=== PATIENT | male | born 1950 | race Caucasian/White ===

== ENCOUNTER 2016-07-04 08:24 | Inpatient (IN) | payer BC, OTHER ==
[~2016-07-04] VITALS: Ht 188 cm; Wt 99.3 kg
[~2016-07-04 08:24] MED LIST: ACETAMINOPHN-T1 EACH PO; AMARYL1 MG PO; AMLODIPINE BESYL5 MG PO; B-COMPLEX-VITA1 EACH PO; CELEXA20 MG PO; COREG12.5 M1 PO; DIGOXIN250 MCG PO; DOCUSATE SODIU100 MG PO; GLUCOPHAGE1000 MG PO; IRON325 M1 PO; POTASSIUM GLUCO2 MEQ PO; POTASSIUM OTC PO; PRAVACHOL40 MG PO; SPIRIVA1 INHALATI IH; UROXATRAL10 MG PO; VITAMIN D2000 UNIT PO; ZESTRIL40 MG PO; ZYLOPRIM300 MG PO
[2016-07-04 10:43] VITALS: BP 147/69
[2016-07-04 11:05] LABS: POINT-OF-CARE METER ID UU14174212
[2016-07-04 17:40] VITALS: BP 146/70
[2016-07-04 18:57] LABS: HEMATOCRIT 37.7 % (38.0-50.0); MCV 88.9 FL (86-99)
[2016-07-04 20:38] VITALS: BP 121/65
[2016-07-04 23:59] LABS: POINT-OF-CARE METER ID UU13113712
[2016-07-05 00:01] VITALS: BP 115/61
[2016-07-05 03:29] VITALS: BP 111/57
[2016-07-05 04:47] LABS: CHLORIDE 106 mEq/L (99-109); POTASSIUM 4.1 mEq/L (3.7-5.4); SODIUM 136 mEq/L (136-147)
[2016-07-05 04:49] LABS: GLUCOSE 159 mg/dL (70-99)
[2016-07-05 04:50] LABS: ANION GAP 8 MEQ/L (2-14)
[2016-07-05 04:53] LABS: GFR ESTIMATE (CALCULATED) > 59 mL/min/; UREA NITROGEN (BUN) 15 mg/dL (9-23)
[2016-07-05 08:48] VITALS: BP 119/60
[2016-07-05 11:30] LABS: POINT-OF-CARE METER ID UU13113712
[2016-07-05 12:00] VITALS: BP 131/61
[2016-07-05 15:50] VITALS: BP 105/56
[2016-07-05 16:25] LABS: POINT-OF-CARE METER ID UU13113712
[2016-07-05 22:37] VITALS: BP 90/54
[2016-07-05 23:17] LABS: POINT-OF-CARE METER ID UU13113712; POINT-OF-CARE USER ID 609231305
[2016-07-06] VITALS: BP 95/53
[2016-07-06 04:00] VITALS: BP 98/57
[2016-07-06 08:00] VITALS: BP 100/50
[2016-07-06 08:14] LABS: POINT-OF-CARE METER ID UU13113712
[2016-07-06 12:00] VITALS: BP 95/51
[2016-07-06 12:03] LABS: POINT-OF-CARE METER ID UU13113712
[2016-07-06] MEDS ORDERED: BENADRYL25 MG PO (14:15)
[2016-07-06] MEDS ORDERED: SENNA PLUS TAB1 EACH PO (14:16)
[2016-07-06] MEDS ORDERED: ENDOCET 5-3251 EACH PO (14:17)
[2016-07-06] MEDS ORDERED: XARELTO10 MG PO (14:17)
[2016-07-06] MEDS ORDERED: CELECOXIB200 MG PO (14:17)
[2016-07-06 16:00] VITALS: BP 117/54
[2016-07-06 17:01] LABS: POINT-OF-CARE METER ID UU13113712
[2016-07-06] MEDS ORDERED: CARDURA4 MG PO (17:32)
[2016-07-06] MEDS ORDERED: NOVOLOG100 UNIT/1 SQ (17:34)
== END 2016-07-06 15:45 | DRG 470 ==
LOC: 2SOUTH 08:24 → 3WEST 10:06 → 2SOUTH 10:26 → 3WEST 17:37
PROVIDERS: Orthopaedic Surgery Sports Medicine
PROC: 3E0T3CZ (ICD-10-PCS; principal; 2016-07-04)
PROC: 0SRD0J9 Replacement of Left Knee Joint with Synthetic Substitute, Cemented, Open Approach (ICD-10-PCS; principal; 2016-07-04)
DX: M17.12 Unilateral primary osteoarthritis, left knee (principal); I10 Essential (primary) hypertension; E11.9 Type 2 diabetes mellitus without complications; M10.9 Gout, unspecified; Z86.718 Personal history of other venous thrombosis and embolism; Z85.118 Personal history of other malignant neoplasm of bronchus and lung; Z87.891 Personal history of nicotine dependence
CPT/HCPCS: 73560; 80048; 82948; 85014; 85018; 85730; C1713; J0171; J0690; J1815; J1885; J2250; J2405; J3010; J7050; L1820; S0020

== ENCOUNTER 2016-07-06 14:55 | Inpatient (IN) | payer BC, OTHER ==
[~2016-07-06] VITALS: Ht 188 cm; Wt 112.0 kg
[~2016-07-06 14:55] MED LIST changes: +BENADRYL25 MG PO; +CELECOXIB200 MG PO; +ENDOCET 5-3251 EACH PO; +SENNA PLUS TAB1 EACH PO; +XARELTO10 MG PO
[2016-07-06 17:10] VITALS: BP 117/54
[2016-07-06] MEDS ORDERED: CARDURA4 MG PO (17:32)
[2016-07-06] MEDS ORDERED: NOVOLOG100 UNIT/1 SQ (17:34)
[2016-07-06 21:17] LABS: POINT-OF-CARE METER ID UU13113720
[2016-07-07] VITALS: BP 102/55
[2016-07-07 05:07] VITALS: BP 113/56
[2016-07-07 07:34] LABS: POINT-OF-CARE METER ID UU14174215; POINT-OF-CARE USER ID AHSSSJB31
[2016-07-07 11:49] LABS: POINT-OF-CARE METER ID UU14174215; POINT-OF-CARE USER ID AHSSSJB31
[2016-07-07 15:20] VITALS: BP 111/59
[2016-07-07 16:23] LABS: POINT-OF-CARE METER ID UU13113720
[2016-07-07 21:09] LABS: POINT-OF-CARE METER ID UU14174215
[2016-07-08 05:44] VITALS: BP 139/65
[2016-07-08 08:44] LABS: POINT-OF-CARE METER ID UU14174215; POINT-OF-CARE USER ID AHSSSJB31
[2016-07-08 12:32] LABS: POINT-OF-CARE METER ID UU13113720; POINT-OF-CARE USER ID AHSSSJB31
[2016-07-08 15:17] VITALS: BP 124/65
[2016-07-08 16:21] LABS: POINT-OF-CARE METER ID UU14174215
[2016-07-08 21:05] LABS: POINT-OF-CARE METER ID UU13113720
[2016-07-09 05:34] VITALS: BP 128/65
[2016-07-09 06:49] LABS: POINT-OF-CARE METER ID UU14174215
[2016-07-09 11:42] LABS: POINT-OF-CARE METER ID UU13113720; POINT-OF-CARE USER ID ENVGAF
[2016-07-09 17:04] VITALS: BP 123/58
[2016-07-09 17:08] LABS: POINT-OF-CARE METER ID UU14174215
[2016-07-09 21:10] LABS: POINT-OF-CARE METER ID UU13113720
[2016-07-10 05:52] VITALS: BP 119/63
[2016-07-10 07:20] LABS: POINT-OF-CARE METER ID UU14174215; POINT-OF-CARE USER ID ENVGAF
[2016-07-10 11:21] LABS: POINT-OF-CARE METER ID UU14174215; POINT-OF-CARE USER ID ENVGAF
[2016-07-10 15:58] VITALS: BP 131/63
[2016-07-10 16:25] LABS: POINT-OF-CARE METER ID UU13113720
[2016-07-10 20:52] LABS: POINT-OF-CARE METER ID UU13113720
[2016-07-11 05:37] VITALS: BP 129/74
[2016-07-11 08:20] LABS: POINT-OF-CARE METER ID UU13113720; POINT-OF-CARE USER ID AHSSSJB31
[2016-07-11 12:11] LABS: POINT-OF-CARE METER ID UU14174215
[2016-07-11 15:46] VITALS: BP 126/64
[2016-07-11 16:26] LABS: POINT-OF-CARE METER ID UU14174215
[2016-07-11 21:09] LABS: POINT-OF-CARE METER ID UU13113720
[2016-07-12 05:25] VITALS: BP 141/70
[2016-07-12 07:38] LABS: POINT-OF-CARE METER ID UU14174215; POINT-OF-CARE USER ID AHSSSJB31
[2016-07-12 11:49] LABS: POINT-OF-CARE METER ID UU14174215
[2016-07-12 15:11] VITALS: BP 137/67
[2016-07-12 16:38] LABS: POINT-OF-CARE METER ID UU14174215
[2016-07-12 21:27] LABS: POINT-OF-CARE METER ID UU13113720
[2016-07-13 05:48] VITALS: BP 132/63
[2016-07-13 06:30] LABS: MCH 29.2 PG (29.0-34.0); MCHC 32.9 G/DL (30.0-36.0); MCV 88.5 FL (86-99); MEAN PLAT.VOLUME 10.4 uM^3 (9.0-12.4); RBC DIS.WIDTH-CV 13.5 % (11.8-14.6); RBC DIS.WIDTH-SD 43.4 % (39-53); RED BLOOD COUNT 3.84 M/uL (4.00-5.50); WHITE BLOOD COUNT 10.9 K/uL (4.1-10.2)
[2016-07-13 06:44] LABS: ALKALINE PHOSPHATASE 58 IU/L (3-129); ANION GAP 9 MEQ/L (2-14); CHLORIDE 101 MEQ/L (99-109); GFR ESTIMATE (CALCULATED) > 59 mL/min/; GLUCOSE 118 mg/dL (70-99); POTASSIUM 5.1 MEQ/L (3.7-5.4); SAMPLE HEMOLYSIS CHECK 0; SAMPLE ICTERIC CHECK 0; SAMPLE LIPEMIA CHECK 0; SODIUM 136 MEQ/L (136-147); TOTAL BILIRUBIN 0.6 MG/DL (0.0-1.0); UREA NITROGEN (BUN) 21 mg/dL (9-23)
[2016-07-13 07:08] LABS: PLATELET COUNT 364 K/uL (156-360)
[2016-07-13 08:01] LABS: POINT-OF-CARE METER ID UU13113720; POINT-OF-CARE USER ID AHSSSJB31
[2016-07-13 11:29] LABS: POINT-OF-CARE METER ID UU13113720; POINT-OF-CARE USER ID AHSSSJB31
[2016-07-13] MEDS ORDERED: ASCORBIC ACID500 M3 PO (13:55)
[2016-07-13] MEDS ORDERED: LIDOCAINE700 MG TD (13:55)
[2016-07-13] MEDS ORDERED: SENNA PLUS TAB1 EACH PO (13:55)
[2016-07-13] MEDS ORDERED: FOLIC ACID1 MG PO (13:55)
[2016-07-13] MEDS ORDERED: THERAGRAN1 TABLET PO (13:55)
[2016-07-13 15:21] VITALS: BP 121/66
[2016-07-13 16:17] LABS: POINT-OF-CARE METER ID UU13113720
[2016-07-13 20:57] LABS: POINT-OF-CARE METER ID UU14174215
[2016-07-14 05:05] VITALS: BP 133/65
[2016-07-14 07:05] LABS: POINT-OF-CARE METER ID UU14174215; POINT-OF-CARE USER ID ENVGAF
== END 2016-07-14 11:33 | disposition home health service (06) | DRG 560 ==
LOC: 3WEST 14:55
PROVIDERS: Physical Medicine & Rehabilitation Pain Medicine
PROC: F07M0ZZ Range of Motion and Joint Mobility Treatment of Musculoskeletal System - Whole Body (ICD-10-PCS; principal; 2016-07-06)
DX: Z47.1 Aftercare following joint replacement surgery (principal); R26.2 Difficulty in walking, not elsewhere classified; Z96.652 Presence of left artificial knee joint; D62 Acute posthemorrhagic anemia; E83.51 Hypocalcemia; I10 Essential (primary) hypertension; E11.9 Type 2 diabetes mellitus without complications; G89.29 Other chronic pain; M17.11 Unilateral primary osteoarthritis, right knee; M25.511 Pain in right shoulder; M25.512 Pain in left shoulder; K76.0 Fatty (change of) liver, not elsewhere classified; N40.0 Benign prostatic hyperplasia without lower urinary tract symptoms; E78.5 Hyperlipidemia, unspecified; M10.9 Gout, unspecified; F41.9 Anxiety disorder, unspecified; Z85.110 Personal history of malignant carcinoid tumor of bronchus and lung; Z90.2 Acquired absence of lung [part of]; Z86.718 Personal history of other venous thrombosis and embolism; Z96.641 Presence of right artificial hip joint
CPT/HCPCS: 80053; 82948; 85027; 97110 GO; 97530 GP